=== PATIENT | male | born 1970 | race Caucasian/White ===

== ENCOUNTER 2016-07-24 12:48 | Day surgery (SDC) | payer BC ==
[2016-07-20 14:43] LABS: HEMATOCRIT 41.5 % (40.0-51.0); HEMOGLOBIN 14.3 g/dL (13.6-17.8)
[2016-07-20 15:00] LABS: BUN (BLOOD UREA NITROGEN) 10 MG/DL (6-23); CALCIUM, SERUM 9.1 MG/DL (8.5-10.4); CHLORIDE, SERUM 110 MMOL/L (96-112); CO2 (CARBON DIOXIDE) 29 MMOL/L (24-34); CREATININE 0.96 MG/DL (0.70-1.30); GFR AFRICAN AMERICAN 109 ML/MIN (>=60); GFR NON AFRICAN AMERICAN 94 ML/MIN (>=60); GLUCOSE, SERUM 96 MG/DL (60-99); SODIUM, SERUM 142 MMOL/L (135-148)
--- NOTE | ~2016-07-24 | OP ---
Record Of Operation [facility] [address] [place]. [address] NAME: MATTHIEU ROTHMAN : 66 STATUS : [facility]#: [id number] AGE: 45 ADM/REG DATE : 07/24/16 MR#: [id number] REPORT SERV DATE: 07/24/16 DICTATED BY: Hakan HAYES DATE: 07/24/16 REPORT STATUS : Draft TRANSCRIBED BY: MODL DATE: 07/24/16 DATE OF PROCEDURE: 07/24/2016 PREOPERATIVE DIAGNOSIS: Voiding dysfunction with severe dysuria. POSTOPERATIVE DIAGNOSIS: Voiding dysfunction with severe dysuria. PROCEDURE: Cystoscopy, bilateral retrograde pyelography, hydrodistention, examination under anesthesia. SURGEON: Hakan Hayes M.D. ANESTHESIA: General. COMPLICATIONS: None. DRAINS: None. BRIEF HISTORY: Mr. Rothman is a 45-year-old white male with a voiding dysfunction including nocturia, daytime frequency, has not seen a moderate force of stream. He also complains of pain with voiding and lower abdominal pain. He has had a trial of a variety of medicines including an alpha blockade and antibiotics which he said he improved somewhat on antibiotics. When I saw him recently, he was still drinking large volumes of cola type beverages every day but felt that was not part of his problem although I had encouraged him to stop those completely. At any rate, he wanted cystoscopic evaluation with plans to proceed as indicated. He did not want that to occur without anesthesia. We discussed the risks of bleeding, infection, anesthesia, injury to adjacent organs, need for biopsy, possible need for postoperative catheter, etc. There were no unanswered questions. DESCRIPTION OF PROCEDURE: Under excellent general anesthesia, the patient was prepped and draped in the standard lithotomy position. Digital exam revealed a 2+ symmetric, smooth prostate gland without rectal masses or other abnormalities. His penis was normal and uncircumcised. Cystoscopy was performed with 30- and 70-degree lenses, revealed a normal anterior urethra without evidence of stricture or other abnormality. The prostate was collar in configuration and not particularly obstructive. Inspection of the bladder revealed no tumors, stones, or foreign bodies. There was fine trabeculation and normal orifices bilaterally. An 8-Yi cone-tipped catheter was used to perform bilateral retrograde pyelography and showed normal caliber ureters without filling defect or obstruction and good drainage. I then filled the bladder under 30 cm of pressure to capacity. The volume was just at 1000 mL. The bladder was then drained and absolutely no petechial hemorrhage or bleeding sites were noted. I terminated the procedure and opted not to place the Carpio catheter. I plan to discharge Mr. Rothman as an outpatient with the following instructions: DISCHARGE INSTRUCTIONS: 1. Home today. 2. Pyridium 200 mg one p.o. t.i.d. p.r.n. bladder pain, #15 with two refills. Record Of Operation [address] [place]. [address] NAME: MATTHIEU ROTHMAN : 66 STATUS : [facility]#: [id number] AGE: 45 ADM/REG DATE : 07/24/16 MR#: [id number] REPORT SERV DATE: 07/24/16 DICTATED BY: Hakan HAYES DATE: 07/24/16 REPORT STATUS : Draft TRANSCRIBED BY: HAILEE DATE: 07/24/16 3. Follow up in my office in 3 to 4 weeks to reassess symptoms. Consider further treatment for chronic prostatitis or other possible etiologies for his discomfort at that time. CHRISTINA/HAILEE Hakan Hayes M.D. / [id number] CC: Sharan Nation
[~2016-07-24 12:48] MED LIST: COZ50 PO; CRESTOR20 MG PO; MAGNESIUM PO; PRILOSEC OTC20 MG PO; SYN1 PO; TRICOR PO; VITAMIN D31000 UNIT PO; VITC500 PO
[2016-10-04] MEDS ORDERED: LOFIB160 PO (13:52)
[2016-10-04] MEDS ORDERED: ZANTAC150 MG PO (13:53)
[2016-10-04] MEDS ORDERED: ASAB PO (13:55)
== END 2016-07-24 16:17 | disposition home or self-care (01) ==
LOC: SDC 12:48
PROC: BT14ZZZ Fluoroscopy of Kidneys, Ureters and Bladder (ICD-10-PCS; principal; 2016-07-24 14:00)
PROC: 0T7B8ZZ Dilation of Bladder, Via Natural or Artificial Opening Endoscopic (ICD-10-PCS; 2016-07-24 14:00)
DX: N39.8 Other specified disorders of urinary system (principal); I10 Essential (primary) hypertension; K21.9 Gastro-esophageal reflux disease without esophagitis; E03.9 Hypothyroidism, unspecified; E78.00 Pure hypercholesterolemia, unspecified; E66.9 Obesity, unspecified; Z68.32 Body mass index [BMI] 32.0-32.9, adult; M54.9 Dorsalgia, unspecified; Z87.891 Personal history of nicotine dependence; Z79.899 Other long term (current) drug therapy; Z98.890 Other specified postprocedural states
CPT/HCPCS: 74420; 80048; 85014; 85018; 93005; A9270-GY; J2250; J2405; J3010; Q9967